=== PATIENT | female | born 1970 | race Two or more races ===

== ENCOUNTER 2022-05-07 16:37 | Inpatient (IN) | payer MEDICAID ==
[~2022-05-07] VITALS: Ht 160 cm; Wt 73.5 kg
[2022-05-07 17:12] LABS: Basophils # (auto) 0.1 10 ^3/uL (0-0.2); Basophils % (auto) 0.8 % (0.0-2.0); Eosinophils # (auto) 0.2 10 ^3/uL (0-0.8); Eosinophils % (auto) 2.5 % (0.0-7.0); Hematocrit 40.2 % (36.0-46.0); Hemoglobin 13.6 g/dL (12.2-16.2); Lymphocytes # (auto) 2.7 10 ^3/uL (0.4-5.4); Lymphocytes % (auto) 35.4 % (10.0-50.0); Mean Corpuscular Hemoglobin 28.3 pg (28.0-32.0); Mean Corpuscular Hgb Conc. 33.8 g/dL (32.0-36.0); Mean Corpuscular Volume 83.6 fL (80.0-100.0); Monocytes # (auto) 0.4 10 ^3/uL (0-1.3); Monocytes % (auto) 5.3 % (0.0-12.0); Neutrophils # (auto) 4.3 10 ^3/uL (1.6-8.6); Nucleated Red Blood Cells % 0.1 %; White Blood Cell 7.7 10^3/uL (4.4-10.8)
[2022-05-07 17:26] LABS: Urine Bacteria NONE SEEN /hpf (None Seen); Urine Blood Negative /uL (Negative); Urine Specific Gravity 1.005 (1.001-1.035); Urine WBC <1 /hpf (0 - 5)
[2022-05-07 17:31] LABS: Albumin 3.9 g/dL (3.4-5.0); BUN/Creatinine Ratio 13.5; Magnesium 2.5 mg/dL (1.6-2.6); Potassium 4.1 mmol/L (3.5-5.1)
[2022-05-07 17:33] LABS: Bilirubin, Total 0.3 mg/dL (0.2-1.0); Total Protein 7.4 g/dL (6.4-8.2)
[2022-05-07] MEDS ORDERED: ASPirin 325 MG TAB PO ONE (21:45)
[2022-05-07] MEDS ORDERED: MORPHINE SULFATE 4 MG/ML SYR/VIAL IV PRN (22:00)
[2022-05-07] MEDS ORDERED: ZOLPIDEM TARTRATE 5 MG TAB PO PRN (22:00)
[2022-05-07] MEDS ORDERED: ACETAMINOPHEN 325 MG TAB PO PRN (22:00)
[2022-05-07] MEDS ORDERED: MAALOX PLUS or MAALOX 30 ML PO ONE (22:00)
[2022-05-07] MEDS ORDERED: ENOXAPARIN SOD 30 MG/0.3 ML SYRINGE IV ONE (22:00)
[2022-05-07] MEDS ORDERED: NITROGLYCERIN 0.4 MG SL TAB SL PRN (22:00)
[2022-05-07] MEDS ORDERED: LORazepam 0.5 MG TAB PO PRN (22:00)
[2022-05-07] MEDS ORDERED: ENOXAPARIN SOD 60 MG/0.6 ML SYRINGE SC ONE (22:30)
[2022-05-07] MEDS: ATORVASTATIN 20 MG TAB PO SCH (23:07)
[2022-05-07] MEDS: METOPROLOL TARTRATE 25 MG TAB PO SCH (23:08)
[2022-05-07] MEDS: SODIUM CHLORIDE 0.9% 1,000 ML IV SCH (23:49)
[2022-05-08 06:11] LABS: Basophils # (auto) 0 10 ^3/uL (0-0.2); Basophils % (auto) 0.8 % (0.0-2.0); Eosinophils # (auto) 0.1 10 ^3/uL (0-0.8); Eosinophils % (auto) 2.4 % (0.0-7.0); Hematocrit 37.5 % (36.0-46.0); Hemoglobin 12.5 g/dL (12.2-16.2); Lymphocytes # (auto) 2.8 10 ^3/uL (0.4-5.4); Mean Corpuscular Hgb Conc. 33.4 g/dL (32.0-36.0); Mean Corpuscular Volume 83.9 fL (80.0-100.0); Monocytes # (auto) 0.4 10 ^3/uL (0-1.3); Monocytes % (auto) 6.6 % (0.0-12.0); Neutrophils # (auto) 2.2 10 ^3/uL (1.6-8.6); Neutrophils % (auto) 39.2 % (37.0-80.0); Red Blood Cells 4.47 10^6/uL (4.0-5.20); White Blood Cell 5.5 10^3/uL (4.4-10.8)
[2022-05-08 06:16] LABS: BUN/Creatinine Ratio 21.3; Calcium 8.6 mg/dL (8.5-10.1); Potassium 3.6 mmol/L (3.5-5.1)
[2022-05-08] MEDS: SODIUM CHLORIDE 0.9% 1,000 ML IV SCH ×2 (09:17→16:02)
[2022-05-08 10:32] VITALS: BP 127/75
[2022-05-08 10:34] VITALS: BP_SYST 127; BP_SYST 145; BP_DIAS 66; BP_DIAS 75
[2022-05-08] MEDS: DOCUSATE SOD 100 MG CAP PO SCH (11:08)
[2022-05-08] MEDS: METOPROLOL TARTRATE 25 MG TAB PO SCH ×2 (11:08→22:03)
[2022-05-08] MEDS: ASPirin 81 mg TAB PO SCH (11:08)
[2022-05-08] MEDS: CLOPIDOGREL BISULFATE 75 MG TAB PO SCH (11:08)
[2022-05-08] MEDS: LISINOPRIL 10 MG TAB PO SCH (11:09)
[2022-05-08 13:00] VITALS: BP 103/67
[2022-05-08 17:00] VITALS: BP 115/65
[2022-05-08 20:00] VITALS: BP 105/62
[2022-05-08 22:00] VITALS: BP 105/62
[2022-05-08] MEDS: ATORVASTATIN 20 MG TAB PO SCH (22:03)
[2022-05-09 05:00] VITALS: BP 93/60
[2022-05-09] MEDS: SODIUM CHLORIDE 0.9% 1,000 ML IV SCH ×2 (05:22→14:22)
[2022-05-09 08:00] VITALS: BP 105/58
[2022-05-09] MEDS: LISINOPRIL 10 MG TAB PO SCH (10:00)
[2022-05-09] MEDS: METOPROLOL TARTRATE 25 MG TAB PO SCH (10:00)
[2022-05-09] MEDS: ASPirin 81 mg TAB PO SCH (10:33)
[2022-05-09] MEDS: CLOPIDOGREL BISULFATE 75 MG TAB PO SCH (10:33)
[2022-05-09] MEDS: DOCUSATE SOD 100 MG CAP PO SCH (10:33)
[2022-05-09 13:00] VITALS: BP 111/65
[2022-05-09] MEDS ORDERED: MET25T PO (14:30)
[2022-05-09 15:40] VITALS: BP 105/58
== END 2022-05-09 17:10 | disposition home or self-care (01) | DRG 203 ==
LOC: ER 16:37 → TELE 21:55 → TELE-WESTW 05-08 10:25
PROVIDERS: ADMIT Hospitalist; ATTEND Nurse Practitioner Acute Care
DX: R07.9 Chest pain, unspecified (principal); C50.919 Malignant neoplasm of unspecified site of unspecified female breast; H11.31 Conjunctival hemorrhage, right eye; Z20.822 Contact with and (suspected) exposure to COVID-19; Z85.3 Personal history of malignant neoplasm of breast; Z90.710 Acquired absence of both cervix and uterus
CPT/HCPCS: 36415; 71045; 80048; 80053; 81001; 83735; 84484; 85025; 87426; 93005; 96372; G0378

== ENCOUNTER 2025-02-01 13:52 | Inpatient (IN) | payer MEDICAID ==
[~2025-02-01] VITALS: Ht 154.9 cm; Wt 66.0 kg
[~2025-02-01 13:52] MED LIST: MET25T PO
--- NOTE | 2025-02-01 14:06 | ED.PDOC ---
HPI (NEURO) HPI Comments 54 year old female with PMhx HTN presents to the ED with a chief complaint of Lt sided weakness onset 1 day. Patient states she has been under severe stress recently, son was involved in MVA, is currently in skilled nursing. She began experiencing Lt sided facial numbness last night, this morning noticed facial numbness has slight improvement, is currently experiencing LT arm numbness/weakness as well as anxiety, fatigue. Denies chest pain, shortness of breath, dizziness, fever, chills, nausea, vomiting, diarrhea, blurred vision, headache. No other symptoms or modifying factors present at this time. 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 Family History Family History: Reviewed,noncontributory to illness Social History Smoker: Non-Smoker Alcohol: Denies ETOH Use Drugs: Denies Drug Use Lives In: Home Constitutional: reports: fatigue; denies: chills, diaphoresis, fever, malaise, sweats, weakness, others EENTM: denies: blurred vision, double vision, ear bleeding, ear discharge, ear drainage, ear pain, ear ringing, eye pain, eye redness, hearing loss, mouth michelle n, mouth swelling, nasal discharge, nose bleeding, nose congestion, nose pain, photophobia, tearing, throat pain, throat swelling, voice changes, others Respiratory: denies: cough, hemoptysis, orthopnea, SOB at rest, shortness of breath, SOB with excertion, stridor, wheezing, others Cardiovascular: denies: chest pain, dizzy spells, diaphoresis, Dyspnea on exertion, edema, irregular heart beat, left arm pain, lightheadedness, palpitations, PND, syncope, others Gastrointestinal: denies: abdomen distended, abdominal pain, blood streaked bowels, constipated, diarrhea, dysphagia, difficulty swallowing, hematemesis, melena, nausea, poor appetite, poor fluid intake, rectal bleeding, rectal pain, vomiting, others Genitourinary: denies: abnormal vagina bleeding, burning, dyspareunia, dysuria, flank pain, frequency, hematuria, incontinence, pain, , vagina discharge, urgency, others Neurological: reports: left sided numbness, left sided weakness; denies: dizziness, fainting, headache, numbness, paresthesia, pre-existing deficit, right sided numbness, right sided weakness, seizure, speech problems, tingling, tremors, weakness, others Musculoskeletal: denies: back pain, gout, joint pain, joint swelling, muscle pain, muscle stiffness, neck pain, others Integumetry: denies: bruises, change in color, change in hair/nails, dryness, laceration, lesions, lumps, rash, wounds, others Allergic/Immunocompromised: denies: Difficulty Healing, Frequent Infections, Hives, Itching, others Hematologic/Lymphatic: denies: anemia, blood clots, easy bleeding, easy bruising, swollen glands, others Endocrine: denies: excessive hunger, excessive sweating, excessive thirst, excessive urination, flushing, intolerance to cold, intolerance to heat, unexplained weight gain, unexplained weight loss, others Psychiatric: reports: anxiety; denies: bipolar disorder, depression, hopeless, panic disorder, schizophrenia, sleepless, suicidal, others All Other Systems: Reviewed and Negative Physical Exam General Appearance: Normal HEENT: Normal ENT Inspection, Pharynx Normal, TMs Normal Neck: Full Range of Motion, Non-Tender, Normal, Normal Inspection Respiratory: Chest Non-Tender, Lungs Clear, No Accessory Muscle Use, No Respiratory Distress, Normal Breath Sounds Cardiovascular: No Edema, No JVD, No Murmur, No Gallop, Normal Peripheral Pulses, Regular Rate/Rhythm Breast Exam: Deferred Gastrointestinal: No Organomegaly, Non Tender, No Pulsatile Mass, Normal Bowel Sounds, Soft Genitalia: Deferred Pelvic: Deferred Rectal: Deferred Extremities: No calf tenderness, Normal capillary refill, Normal inspection, Normal range of motion, Non-tender, No pedal edema Musculoskeletal : Apperance: Normal Neurologic: Alert, quality assistant II-XII nml as Tested, No Motor Deficits, Normal Affect, Normal Mood, No Sensory Deficits Cerebellar Function: Normal Reflexes: Normal Skin: Dry, Normal Color, Warm Lymphatic: No Adenopathy Was a procedure done? Was a procedure done?: No Differential Diagnosis (SZ) Seizure: Hyponatremia, Idiopathic CVA: Hypoxemia General Weakness: Guillain-Gaston, Hypoglycemia Headache: Subdural Hemorrhage X-Ray, Labs, Meds, VS Vital Signs Date Time Temp Pulse Resp B/P (MAP) Pulse Ox O2 Delivery O2 Flow Rate FiO2 02/01/25 16:23 97.7 67 18 122/79 (93) 97 97.7 02/01/25 16:23 67 18 98 Room Air 02/01/25 13:55 97.6 86 18 156/90 98 97.6 Lab Test 02/01/25 17:41 02/01/25 15:35 02/01/25 14:48 02/01/25 14:41 Range/Units Troponin I High Sensitivity Pending < 3 L < 3 L </=34 ng/L Urine Color Yellow Yellow Urine Clarity Turbid H Clear Urine pH 5.5 5.0-9.0 Urine Specific [place] 1.024 1.001-1.035 Urine Protein Trace H Negative Urine Ketones Negative Negative Urine Blood 1+ H Negative /uL Urine Nitrite Negative Negative Urine Bilirubin Negative Negative Urine Urobilinogen Normal Negative mg/dL Urine Leukocyte Esterase 3+ Negative /uL Urine RBC 14 0 - 4 /hpf Urine Microscopic WBC 115 H 0-5 /HPF Urine Squamous Epithelial Cells Few <5 /hpf Urine Bacteria None seen None Seen /hpf Urine Mucus Few None Seen Urine Glucose Normal Normal mg/dL White Blood Count 7.7 4.4-10.8 10^3/uL Red Blood Count 4.79 4.0-5.20 10^6/uL Hemoglobin 13.3 12.2-16.2 g/dL Hematocrit 39.7 36.0-46.0 % Mean Corpuscular Volume 82.7 80.0-100.0 fL Mean Corpuscular Hemoglobin 27.8 L 28.0-32.0 pg Mean Corpuscular Hemoglobin Concent 33.6 32.0-36.0 g/dL Red Cell Distribution Width 14.8 H 11.8-14.3 % Platelet Count 272 140-450 10^3/uL Mean Platelet Volume 8.2 6.9-10.8 fL Neutrophils (%) (Auto) 59.6 37.0-80.0 % Lymphocytes (%) (Auto) 32.9 10.0-50.0 % Monocytes (%) (Auto) 5.3 0.0-12.0 % Eosinophils (%) (Auto) 1.6 0.0-7.0 % Basophils (%) (Auto) 0.6 0.0-2.0 % Neutrophils # (Auto) 4.6 1.6-8.6 10 ^3/uL Lymphocytes # (Auto) 2.5 0.4-5.4 10 ^3/uL Monocytes # (Auto) 0.4 0-1.3 10 ^3/uL Eosinophils # (Auto) 0.1 0-0.8 10 ^3/uL Basophils # (Auto) 0 0-0.2 10 ^3/uL Nucleated Red Blood Cells 0.0 % Sodium Level 145 136-145 mmol/L Potassium Level 3.7 3.5-5.1 mmol/L Chloride Level 107 98-107 mmol/L Carbon Dioxide Level 27 20-31 mmol/L Anion Gap 11 5-15 Blood Urea Nitrogen 15 9-23 mg/dL Creatinine 0.70 0.550-1.02 mg/dL Glomerular Filtration Rate Calc 101 >90 mL/min BUN/Creatinine Ratio 21.4 H 10.0-20.0 Serum Glucose 92 74-106 mg/dL Calcium Level 9.3 8.7-10.4 mg/dL [place] [address] Ph: [phone] DIAGNOSTIC IMAGING Diagnostic Imaging Report : [id number] Signed PATIENT: LUZMARIA HENDRICKSCCT: [id number] UNIT: [id number] : 1970 LOC: ER ROOM / BED: / AGE / SEX: 54 / F ADM STATUS: REG ER SERVICE 1450 ORDERING PHYSICIAN: AIDA COLBERT MD PROCEDURE(s): HWOCT - HEAD WITHOUT CONTRAST REASON: numbness ORDER NUMBER(s): [id number], ACCESSION NUMBER(s): [id number] EXAM: CT HEAD WITHOUT CONTRAST INDICATION: numbness TECHNIQUE: CT of the head without intravenous contrast. Radiation Dose Information: CT Dose: CTDI volume is 51.38 mGy. Dose-length product is 1010.93 mGy*cm The dose indicators for CT are the volume Computed Tomography (CT) Dose Index ( CTDIvol) and the Dose Length Product (DLP), and are measured in units of mGy and mGy-cm, respectively. These indicators are not patient dose, but values generated from the CT scanner acquisition factors. The report includes radiation exposure data for exposures received during this examination. COMPARISON: None FINDINGS: There is no evidence of acute intracranial hemorrhage, extra-axial collection, mass effect, midline shift, herniation or hydrocephalus. The ventricles, sulci and cisterns are age appropriate. The nunn-white differentiation is intact. Patchy periventricular and subcortical white matter hypoattenuation is n onspecific but may be related to small vessel ischemic disease. The visualized paranasal sinuses and mastoid air cells are clear. The surrounding soft tissues and osseous structures are unremarkable. IMPRESSION: No acute intracranial abnormality. ATED BY: BOBBY CUENCA MD DICTATED DATE/TIME: 02/01/25 143 SIGNED BY: BOBBY CUENCA MD SIGNED DATE/TIME: 02/01/25 143 CC: [place] [id number] Ph: [phone] DIAGNOSTIC IMAGING Diagnostic Imaging Report : [id number] Signed PATIENT: ALIA HENDRICKST: [id number] UNIT: [id number] : 1970 LOC: ER ROOM / BED: / AGE / SEX: 54 / F ADM STATUS: REG ER SERVICE 1405 ORDERING PHYSICIAN: AIDA COLBERT MD PROCEDURE(s): CXRP - CHEST PORTABLE REASON: numbness ORDER NUMBER(s): [id number], ACCESSION NUMBER(s): [id number] EXAM: XY CHEST PORTABLE Indication: numbness Technique: Single frontal view of the chest was obtained Comparison: CHEST PORTABLE on DOS: 05/07/22, CXRP on DOS: 05/07/22 FINDINGS: Lines and Tubes: None Lungs: No focal consolidation. Pleura: No effusion. No pneumothorax. Cardiomediastinal contours: Unremarkable Bones: No acute osseous abnormality. IMPRESSION: No acute cardiopulmonary disease. ATED BY: QUINCY QUILES MD DICTATED DATE/TIME: 02/01/251440 SIGNED BY: QUINCY QUILES MD SIGNED DATE/TIME: 02/01/251440 CC: Time of 1ST Reevaluation: 14:30 Reevaluation 1ST: Unchanged Patient Education/Counseling: Diagnosis, Treatment, Prognosis Family Education/Counseling: No Family Present Departure 1 Departure Time of Disposition: 17:52 (Patient with a concern for CVA versus TIA versus complicated UTI. We will empirically cover patient with antibiotics fluids and admit patient for further workup and expert consultation) Impression: Primary Impression: Left arm weakness Additional Impressions: Complicated UTI (urinary tract infection) Generalized weakness Disposition: ADMITTED INPATIENT Admit to: Tele Condition: Guarded Critical Care Note Critical Care Time?: Yes Critical care comment: Concern for CVA Authorized and Performed by: Aida Colbert MD Total critical care time: Approximately 39 minutes Due to a high probability of clinically significant, life threatening deterioration, the patient required my highest level of preparedness to intervene emergently and I personally spent this critical care time directly and personally managing the patient. This critical care time included obtaining a history; examining the patient; pulse oximetry; ordering and review of studies; arranging urgent treatment with development of a management plan; evaluation of patient's response to treatment; frequent reassessment; and, discussions with other providers. This critical care time was performed to assess and manage the high probability of imminent, life-threatening deterioration that could result in multi-organ failure. It was exclusive of separately billable procedures and treating other patients and teaching time. Please see my other sections and the rest of the note for further information on patient assessment and treatment. Stability Stability form required: No Heart Score Heart Score: Heart Score Response (Comments) Value History N/A 0 EKG N/A 0 Age N/A 0 Risk Factors N/A 0 Troponin N/A 0 Total 0 I personally scribed for AIDA COLBERT MD ([email or web address]) on 02/01/25 at 14:06. Electronically submitted by Neda Shelby ([email or web address]). I personally scribed for AIDA COLBERT MD ([email or web address]) on 02/01/25 at 15:38. Electronically submitted by Neda Shelby ([email or web address]). AIDA COLBERT MD Feb 01, 2025 14:06
--- NOTE | 2025-02-01 14:35 | DVH ---
EXAM: CT HEAD WITHOUT CONTRAST INDICATION: numbness TECHNIQUE: CT of the head without intravenous contrast. Radiation Dose Information: CT Dose: CTDI volume is 51.38 mGy. Dose-length product is 1010.93 mGy*cm The dose indicators for CT are the volume Computed Tomography (CT) Dose Index (CTDIvol) and the Dose Length Product (DLP), and are measured in units of mGy and mGy-cm, respectively. These indicators are not patient dose, but values generated from the CT scanner acquisition factors. The report includes radiation exposure data for exposures received during this examination. COMPARISON: None FINDINGS: There is no evidence of acute intracranial hemorrhage, extra-axial collection, mass effect, midline s hift, herniation or hydrocephalus. The ventricles, sulci and cisterns are age appropriate. The nunn-white differentiation is intact. Patchy periventricular and subcortical white matter hypoattenuation is nonspecific but may be related to small vessel ischemic disease. The visualized paranasal sinuses and mastoid air cells are clear. The surrounding soft tissues and osseous structures are unremarkable. IMPRESSION: No acute intracranial abnormality.
--- NOTE | 2025-02-01 14:43 | DVH ---
EXAM: XY CHEST PORTABLE Indication: numbness Technique: Single frontal view of the chest was obtained Comparison: CHEST PORTABLE on DOS: 05/07/22, CXRP on DOS: 05/07/22 FINDINGS: Lines and Tubes: None Lungs: No focal consolidation. Pleura: No effusion. No pneumothorax. Cardiomediastinal contours: Unremarkable Bones: No acute osseous abnormality. IMPRESSION: No acute cardiopulmonary disease.
[2025-02-01 14:50] LABS: Hematocrit 39.7 % (36.0-46.0); Hemoglobin 13.3 g/dL (12.2-16.2); Mean Corpuscular Hemoglobin 27.8 pg (28.0-32.0); Mean Corpuscular Volume 82.7 fL (80.0-100.0); Nucleated Red Blood Cells % 0.0 %
[2025-02-01 14:57] LABS: Chloride 107 mmol/L (98-107); Potassium 3.7 mmol/L (3.5-5.1); Sodium 145 mmol/L (136-145)
[2025-02-01 14:58] LABS: Anion Gap 11 (5-15); Calcium 9.3 mg/dL (8.7-10.4); Carbon Dioxide 27 mmol/L (20-31)
[2025-02-01 15:03] LABS: BUN/Creatinine Ratio 21.4 (10.0-20.0); Blood Urea Nitrogen 15 mg/dL (9-23); Glucose 92 mg/dL (74-106)
[2025-02-01 15:30] LABS: Urine Protein, UAD TRACE (Negative)
[2025-02-01] MEDS: VANCOMYCIN 1GM/250ML KIT 250 ML IV ONE (18:56)
--- NOTE | 2025-02-01 20:59 | ECG ---
[facility] Test Date: 2025-02-01 Test Time: 20:58:28 Pat Name: ALEXUS MARIANO Department: ED Room: 0281T Gender: F Supervisor [employer] Department: SEBASTIÁN : 1970 Requested By: AIDA COLBERT Order Number: [id number] Reading MD: Kirk Santana Measurements Intervals [place] Rate: 58 P: 53 SD: 209 QRS: 36 QRSD: 99 T: -29 QT: 451 QTc: 444 Interpretive Statements Sinus rhythm Borderline prolonged SD interval Low voltage, precordial leads Borderline repolarization abnormality Electronically Signed On 02-05-2025 20:29:52 PDT by Kirk Santana Please click the below link to view image of tracing.
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
--- NOTE | 2025-02-01 21:48 | DVH ---
CLINICAL HISTORY: TIA TECHNIQUE: Hemphill-scale, Color and Duplex Doppler imaging of the bilateral carotid systems was performe d. COMPARISON: None Findings: Right Carotid system: There is no plaque present in the right carotid system. Left Carotid system: There is no plaque present in the left carotid system. The following flow velocities were obtained (cm/sec). Right Carotid System: ICA PSV: 117 cm/sec ICA PDV: 54 cm/sec ICA/CCA Ratio: 1.4 Left Carotid System: ICA PSV: 90 cm/sec ICA PDV: 47 cm/sec ICA/CCA Ratio: 1.2 The right and left common carotid and external carotid arteries are patent. There is antegrade flow i n both vertebral arteries and external carotid arteries. IMPRESSION: NORMAL RIGHT CAROTID SYSTEM. NORMAL LEFT CAROTID SYSTEM. Estimation of carotid stenosis is based on velocity parameters that correlate the residual internal c arotid diameter with that of the more distal vessel in accordance with the [place] Symptomatic Carotid Endarterectomy Trial (NASCET).
[2025-02-01 21:50] LABS: INR 0.97 (0.9-1.15); Partial Thromboplastin Time 28.3 SEC (24.5-34.5); Prothrombin Time 10.3 sec (9.3-11.8)
[2025-02-01 22:02] LABS: Alanine Aminotransferase 38 U/L (7-40); Bilirubin, Total 0.3 mg/dL (0.2-1.0); Magnesium 2.2 mg/dL (1.6-2.6); Total Protein 8.1 g/dL (5.7-8.2)
[2025-02-01 22:07] LABS: Albumin 4.9 g/dL (3.2-4.8); Alkaline Phosphatase 132 U/L (46-116); Bilirubin, Direct < 0.1 mg/dL (<0.3)
[2025-02-01 22:17] VITALS: BP 126/85; PULSE 62; RESP 18; TEMP 98.6; O2SAT 99
[2025-02-01 22:54] VITALS: PULSE 65; RESP 17; O2SAT 99
[2025-02-01] MEDS: SODIUM CHLORIDE 0.9% 1,000 ML IV ONE (23:02)
[2025-02-01] MEDS: CEFEPIME 2GM/50ML NS 50 ML IV ONE (23:03)
[2025-02-01] MEDS: METOPROLOL TARTRATE 25 MG TAB PO SCH (23:04)
[2025-02-01] MEDS: ATORVASTATIN 20 MG TAB PO SCH (23:04)
[2025-02-01 23:41] LABS: Amphetamine Screen, Urine Neg (NEGATIVE); Barbiturate Scree,Urine Neg (NEGATIVE); Benzodiazephine Screen, Urine Neg (NEGATIVE)
[2025-02-01 23:42] LABS: Cannabinoid Screen, Urine Neg (NEGATIVE); Cocaine Screen, Urine Neg (NEGATIVE); Opiate Scree,Urine Neg (NEGATIVE); Phencyclidine Screen, Urine Neg (NEGATIVE)
[2025-02-02] VITALS (8 sets, daily range): BP systolic 104–126; BP diastolic 67–81; PULSE 63–73; RESP 17–18; TEMP 97.7–98.8; O2SAT 18–99
[2025-02-02] MEDS ORDERED: ALBUAER3 IN (03:04)
[2025-02-02] MEDS ORDERED: ASPI-498 PO (03:04)
[2025-02-02] MEDS ORDERED: ACET-1304 PO (03:04)
[2025-02-02 05:28] LABS: Sodium 144 mmol/L (136-145)
[2025-02-02 05:29] LABS: Anion Gap 9 (5-15); Carbon Dioxide 26 mmol/L (20-31)
[2025-02-02 05:32] LABS: Hematocrit 36.1 % (36.0-46.0); Hemoglobin 11.9 g/dL (12.2-16.2); Mean Corpuscular Hemoglobin 27.3 pg (28.0-32.0); Mean Corpuscular Volume 83.0 fL (80.0-100.0); Nucleated Red Blood Cells % 0.1 %
[2025-02-02 05:34] LABS: Calcium 8.2 mg/dL (8.7-10.4); Chloride 109 mmol/L (98-107); Glucose 91 mg/dL (74-106); Potassium 3.5 mmol/L (3.5-5.1)
[2025-02-02 06:09] LABS: BUN/Creatinine Ratio 15.5 (10.0-20.0); Blood Urea Nitrogen 9 mg/dL (9-23)
[2025-02-02 06:21] LABS: Triglycerides 117 mg/dL (< 150)
[2025-02-02 06:22] LABS: Cholesterol 166 mg/dL (< 200); HDL Cholesterol 47 mg/dL (40-59)
[2025-02-02] MEDS: ENOXAPARIN SOD 40 MG/0.4 ML SYRINGE SC SCH (09:01)
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
--- NOTE | 2025-02-02 18:44 | DVH ---
PROCEDURE: MRI BRAIN HEAD WO CONTRAST INDICATION: evaluate for stroke EXAM DATE: 02/02/2025 05:10 PM COMPARISON: US CAROTID DUPLX W COLOR DOP on DOS: 02/01/25, CT HEAD WITHOUT CONTRAST on DOS: 02/01/25 TECHNIQUE: MRI of the brain without intravenous contrast. FINDINGS: Diffusion weighted images of the brain demonstrate no evidence of acute infarction. There is no evidence of acute intracranial hemorrhage, extra-axial collection, mass effect, midline s hift, herniation or hydrocephalus. The ventricles, sulci and cisterns appear age appropriate. Probable prominent perivascular space inferiorly within the left basal ganglia measuring 1.2 cm. The signal intensities of the brain parenchyma are within normal limits. There are no signal abnormalities on the susceptibility weighted sequences. The major vascular flow voids are present. The visualized paranasal sinuses and mastoid air cells are clear. The surrounding soft tissues and o sseous structures are unremarkable. IMPRESSION: No evidence of acute infarction, intracranial hemorrhage, mass effect or hydrocephalus.
[2025-02-03] VITALS (8 sets, daily range): BP systolic 103–128; BP diastolic 42–81; PULSE 57–74; RESP 16–18; TEMP 97.3–98; O2SAT 95–98
[2025-02-03] MEDS: POLYETHYLENE GLYCOL 17 GM PWDR PO ONE (07:00)
[2025-02-03 07:21] LABS: Anion Gap 9 (5-15); Carbon Dioxide 28 mmol/L (20-31); Chloride 106 mmol/L (98-107); Potassium 3.8 mmol/L (3.5-5.1); Sodium 143 mmol/L (136-145)
[2025-02-03 07:23] LABS: Calcium 8.9 mg/dL (8.7-10.4)
[2025-02-03 07:27] LABS: BUN/Creatinine Ratio 11.8 (10.0-20.0); Glucose 92 mg/dL (74-106)
[2025-02-03 07:29] LABS: Blood Urea Nitrogen 8 mg/dL (9-23)
[2025-02-03 07:35] LABS: Hematocrit 37.5 % (36.0-46.0); Hemoglobin 12.5 g/dL (12.2-16.2); Mean Corpuscular Hemoglobin 27.4 pg (28.0-32.0); Mean Corpuscular Volume 82.3 fL (80.0-100.0); Nucleated Red Blood Cells % 0.1 %
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
[2025-02-04 01:00] VITALS: BP 105/72; PULSE 68; RESP 18; TEMP 97.4; O2SAT 99
[2025-02-04 05:00] VITALS: BP 104/76; PULSE 70; RESP 18; TEMP 97.3; O2SAT 100
[2025-02-04 07:09] LABS: Hematocrit 38.4 % (36.0-46.0); Hemoglobin 12.9 g/dL (12.2-16.2); Mean Corpuscular Hemoglobin 27.7 pg (28.0-32.0); Mean Corpuscular Volume 82.6 fL (80.0-100.0); Nucleated Red Blood Cells % 0.1 %
[2025-02-04 07:23] LABS: Chloride 104 mmol/L (98-107); Potassium 3.9 mmol/L (3.5-5.1); Sodium 143 mmol/L (136-145)
[2025-02-04 07:24] LABS: Anion Gap 9 (5-15); Calcium 9.2 mg/dL (8.7-10.4); Carbon Dioxide 30 mmol/L (20-31)
[2025-02-04 07:29] LABS: BUN/Creatinine Ratio 16.7 (10.0-20.0); Blood Urea Nitrogen 12 mg/dL (9-23); Glucose 83 mg/dL (74-106)
[2025-02-04 08:00] VITALS: PULSE 60; O2SAT 95
[2025-02-04 09:00] VITALS: BP 117/72; PULSE 58; RESP 16; TEMP 97.4; O2SAT 98
[2025-02-04] MEDS: METOPROLOL SUCCINATE XL 50 MG TAB PO SCH (09:11)
[2025-02-04 13:00] VITALS: BP 107/69; PULSE 63; RESP 17; TEMP 97.6; O2SAT 95
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
[2025-02-04] MEDS ORDERED: ASPI-325 PO (16:12)
[2025-02-04] MEDS ORDERED: METO-6 PO (16:12)
[2025-02-04] MEDS ORDERED: ATOR20TA50 PO (16:12)
[2025-02-04 16:40] VITALS: BP 107/69; PULSE 62; O2SAT 96
--- NOTE | 2025-02-07 18:03 | DVHSR ---
APPROVED REPORT EXAM: Two-dimensional and M-mode echocardiogram with Doppler and color Doppler. Blood Pressure: 123/80 mmHg INDICATION Evaluate EF RISK FACTORS Height: 5'1", Weight: 142 DIMENSIONS LVDd4.7 (3.8-5.7cm)LA (2D)3.4 (1.9-4.0cm)Aortic Root2.7 (2.0-3.7cm) LVDs3.6 (2.5-4.0cm)LA (MM) (1.9-4.0cm)Aortic Cusp Exc1.5 (1.5-2.0cm) EF (%) 44.0 (55-70%)Rt. Atrium3.6 (1.9-4.0cm)Asc. Aorta3.1 cm IVSd0.7 (0.7-1.1cm)RV (D)3.4 (1.8-2.4cm) PWd0.7 (0.7-1.1cm) Mitral Valve MitralMitral Stenosis E wave0.74m/sMV Mean GR.mmHg A wave0.72m/sMV Peak GR.mmHg E/A ratio1.02D MVAcm2 DECEL [id number] 1/2 [place] Aortic Valve Aortic ValveAortic Stenosis V11.09m/Cherelle Mean GR.4mmHg V21.30m/Cherelle Peak GR.7mmHg LVOT Diameter1.9 (1.8-2.4cm)Doppler AVA2.38cm2 Pulmonic Valve V20.78m/s Tricuspid Valve TR Velocity1.92m/s [id number] Conclusion Technically good study. Sinus rhythm. Left atrial enlargement. Valves are normal. EF of 40% with global hypokinesis. Unremarkable Doppler. No pericardial effusion masses or vegetations.
--- NOTE | 2025-02-10 13:21 | DVHPN2 ---
Date of Service: Feb 03, 2025 Billing Provider: NING NORIEGA MD Common Visit Codes: [id number] INP/OBS CARE(HIGH) NING NORIEGA MD Feb 10, 2025 13:21
== END 2025-02-04 17:17 | disposition home or self-care (01) | DRG 58 ==
LOC: ER 13:52 → OVERFLOW 20:52 → TELE-WESTW 22:30
PROVIDERS: ADMIT Student in an Organized Health Care Education/Training Program; ATTEND Student in an Organized Health Care Education/Training Program
DX: R20.0 Anesthesia of skin (principal); F41.9 Anxiety disorder, unspecified; I10 Essential (primary) hypertension; N30.01 Acute cystitis with hematuria; J45.909 Unspecified asthma, uncomplicated; Z90.710 Acquired absence of both cervix and uterus; Z85.3 Personal history of malignant neoplasm of breast; Z79.899 Other long term (current) drug therapy
CPT/HCPCS: 36415; 70450; 70551; 71045; 80048; 80061; 80076; 80307; 81001; 82306; 82607; 83036; 83605; 83735; 84100; 84443; 84484; 85025; 85379; 85610; 85730; 87040; 87086; 87088; 87186; 93005; 93306; 93886; 96365; 99291; G0378; J0692